=== PATIENT | male | born 1985 | race Two or more races ===

== ENCOUNTER 2020-12-30 23:43 | Emergency (ER) | payer SELFPAY ==
[~2020-12-30] VITALS: Ht 170.2 cm; Wt 114.0 kg
[2020-12-31] MEDS ORDERED: TRAMADOL 50MG TABLET PO ONE (01:30)
[2020-12-31] MEDS ORDERED: METHOCARBAMOL 500MG TABLET PO ONE (01:30)
[2020-12-31] MEDS ORDERED: NAPR-681 MT (04:46)
[2020-12-31] MEDS ORDERED: METH500T6 MT (04:46)
[2020-12-31 04:52] VITALS: BP 134/90
== END 2020-12-31 05:13 | disposition home or self-care (01) ==
LOC: ER 23:43
DX: S16.1XXA Strain of muscle, fascia and tendon at neck level, initial encounter (principal); M25.531 Pain in right wrist; M25.511 Pain in right shoulder; G89.11 Acute pain due to trauma; V49.49XA Driver injured in collision with other motor vehicles in traffic accident, initial encounter; Y93.89 Activity, other specified; Y92.488 Other paved roadways as the place of occurrence of the external cause; L40.9 Psoriasis, unspecified
CPT/HCPCS: 29125; 73030; 73110; 99284